=== PATIENT | female | born 1985 | race Caucasian/White ===

== ENCOUNTER 2020-03-29 05:28 | Emergency (ER) | payer OTHER ==
[~2020-03-29] VITALS: Ht 154.9 cm; Wt 47.2 kg
[2020-03-29 06:25] LABS: INFLUENZA A ANTIGEN Negative (Negative); INFLUENZA B ANTIGEN Negative (Negative)
[2020-03-29 06:39] VITALS: BP 135/72
== END 2020-03-29 06:42 | disposition home or self-care (01) ==
LOC: M.ERS 05:28
PROVIDERS: Personal Emergency Response Attendant
DX: R05 Cough (principal); Z20.828 Contact with and (suspected) exposure to other viral communicable diseases; R06.02 Shortness of breath; R51 Headache; R53.83 Other fatigue; R09.81 Nasal congestion; R07.9 Chest pain, unspecified; F17.210 Nicotine dependence, cigarettes, uncomplicated